=== PATIENT | male | born 1995 | race Caucasian/White ===

== ENCOUNTER 2017-07-12 10:41 | Emergency (ER) | payer OTHER ==
[~2017-07-12] VITALS: Ht 180.3 cm; Wt 90.9 kg
[2017-07-12 10:45] VITALS: TEMP 97.7
[2017-07-12] MEDS ORDERED: NORCO 325 MG-51 TAB PO (12:57)
[2017-07-12] MEDS ORDERED: ZOFRAN ODT4 MG PO (13:14)
[2017-07-12 13:32] VITALS: BP 130/80; PULSE 98
== END 2017-07-12 13:17 | disposition home or self-care (01) ==
LOC: COL.ER 10:41
DX: S02.31XA Fracture of orbital floor, right side, initial encounter for closed fracture (principal); W22.8XXA Striking against or struck by other objects, initial encounter; Y93.64 Activity, baseball

== ENCOUNTER → 2018-09-21 | Outpatient (CLI) | payer OTHER ==
[~2018-09-21] MED LIST: NORCO 325 MG-51 TAB PO; ZOFRAN ODT4 MG PO
== END ==
LOC: COL.RAD 07:53
DX: M24.811 Other specific joint derangements of right shoulder, not elsewhere classified (principal); S43.491A Other sprain of right shoulder joint, initial encounter; R60.0 Localized edema
CPT/HCPCS: A9585; Q9967

== ENCOUNTER → 2020-03-12 | Outpatient (CLI) | payer OTHER | LOC: COL.RAD 10:38 | DX: H05.30 Unspecified deformity of orbit (principal) | CPT/HCPCS: Q9967 ==